=== PATIENT | male | born 1975 | race Hispanic/Latino ===

== ENCOUNTER → 2025-09-06 | Day surgery (SDC) | payer BC ==
[~2025-09-06] MED LIST: ACETAMINOPHEN 1000 MG/100 ML 100 ML IV ONE; FAMOTIDINE 20 MG/2 ML VIAL IV ONE; FENTANYL CITRATE/PF 100MCG/2 ML INJ ONE; LACTATED RINGER'S 1,000 ML ONE; LIDOCAINE HCL 2% LOCAL INJ 5 ML SDV VIAL INJ ONE; MIDAZOLAM HCL 2 MG/2 ML VIAL ONE; ONDANSETRON HCL INJ 2MG/ML 2ML 2 MG/ML VIAL ONE; PROPOFOL IV EMULSION 10 MG/ML 20 ML VIAL ONE; ROSUVASTATIN CA20 MG PO
[2025-09-06 11:03] VITALS: TEMP 97.6
[2025-09-06 12:10] VITALS: BP 138/88; PULSE 60; RESP 16; O2SAT 97
[2025-09-06] MEDS: HYDROCODONE/APAP 7.5MG-325MG 1 EA TAB ONE (14:09)
== END | disposition home or self-care (01) ==
LOC: OR 08:24
PROVIDERS: ATTEND Specialist
DX: S83.232A Complex tear of medial meniscus, current injury, left knee, initial encounter (principal); M94.262 Chondromalacia, left knee; E78.5 Hyperlipidemia, unspecified; X58.XXXA Exposure to other specified factors, initial encounter; Z79.899 Other long term (current) drug therapy
CPT/HCPCS: 29881; J0131; J0690; J1308; J2003; J2250; J2405; J2704; J3010; J7121